=== PATIENT | male | born 1990 | race Caucasian/White ===

== ENCOUNTER 2022-07-09 14:38 | Inpatient (IN) ==
[2022-07-09 17:00] LABS: ABS Basophils 0.1 10^3/ul (0-0.2); ABS Eosinophils 0.3 10^3/ul (0-0.6); ABS Lymphocytes 1.9 10^3/ul (1.0-4.8); ABS Monocytes 0.8 10^3/ul (0-0.8); ABS Neutrophils 11.7 10^3/ul (1.5-7.7); Eosinophil % 1.7 %; Hematocrit 28 % (42-52); Hemoglobin 9.4 g/dL (14.0-18.0); Lymphocyte % 13.1 %; Mean Corpuscular HGB Conc 34 g/dL (31-36); Mean Corpuscular Hemoglobin 32 pg (27-31); Mean Corpuscular Volume 96 fL (80-94); Mean Platelet Volume 7.6 fL (7.4-10.4); Platelet Count 175 10^3/uL (150-450); Red Blood Count 2.93 10^6 /uL (4.18-5.48); Red Cell Distribution Width 15 % (10-15); White Blood Count 14.8 10^3/uL (3.5-10.8)
[2022-07-09 17:20] LABS: Albumin 3.6 g/dL (3.2-5.2); Calcium 7.6 mg/dL (8.6-10.3); Total Protein 5.7 g/dL (6.4-8.9); eGFR CKD-EPI 2.7 (>60)
[2022-07-09 17:21] LABS: Albumin/Globulin Ratio 1.7 (1-3); Globulin 2.1 g/dL (2-4); Potassium 5.3 mmol/L (3.5-5.0); Total Bilirubin 0.4 mg/dL (0.2-1.0)
[2022-07-09] MEDS ORDERED: Vancomycin 1,000 MG in NS 0.9% 250 ml 250 ML IVPB ONE (17:46)
[2022-07-09] MEDS ORDERED: Nitro 2% OINT (Nitroglycerin) 1 INCH/PAK TOPICAL ONE (20:00)
[2022-07-09] MEDS ORDERED: Heparin *DIALYSIS* ONLY 1,000 UNITS/ML VIAL DIALYSIS ONE (20:05)
[2022-07-09 21:19] LABS: C Reactive Protein 31.67 mg/L (<8.01)
[2022-07-09] MEDS: HYDROmorphone 0.5 MG/0.5 ML SYRINGE IV SLOW PU PRN (22:15)
[2022-07-09 22:29] LABS: Magnesium 2.5 mg/dL (1.9-2.7)
[2022-07-09 23:41] LABS: Hepatitis B Surface Antigen Nonreactive (Nonreactive)
[2022-07-09 23:46] LABS: Hepatitis A Ab IgM Negative (Negative)
[2022-07-09 23:47] LABS: Hepatitis B Core IgM Nonreactive (Nonreactive)
[2022-07-09 23:58] LABS: Hepatitis B Surface Ab Immune (Immune); Hepatitis C Antibody Negative (Negative)
[2022-07-10] MEDS ORDERED: Famotidine IV 10 MG/ML 2 ml VIAL (20 mg) IV ONE (00:30)
[2022-07-10] MEDS ORDERED: Pantoprazole VIAL 40 MG VIAL IV SCH (01:00)
[2022-07-10] MEDS ORDERED: Ondansetron 4 mg VIAL 2 MG/ML 2 ml VIAL ONE (01:47)
[2022-07-10] MEDS: Ondansetron 4 mg VIAL 2 MG/ML 2 ml VIAL IV PRN ×2 (01:48→09:44)
[2022-07-10] MEDS ORDERED: Labetalol IV 5 MG/ML 20 ml VIAL IV PUSH ONE (02:08)
[2022-07-10] MEDS: HYDROmorphone 0.5 MG/0.5 ML SYRINGE IV SLOW PU PRN ×2 (02:15→11:42)
[2022-07-10] MEDS ORDERED: Cefepime 1 GM in Dextrose 1 GM/50 ML BAG IV SCH (03:00)
[2022-07-10] MEDS ORDERED: Cefepime 1 GM in Dextrose 1 GM/50 ML BAG IV ONE (03:00)
[2022-07-10] MEDS ORDERED: Prochlorperazine 5 mg/ml 2 ml VIAL (10 mg) ONE (03:44)
[2022-07-10] MEDS: Prochlorperazine 5 mg/ml 2 ml VIAL (10 mg) IV PRN ×2 (03:44→09:48)
[2022-07-10 04:26] LABS: ABS Basophils 0.1 10^3/ul (0-0.2); ABS Eosinophils 0.3 10^3/ul (0-0.6); ABS Lymphocytes 1.6 10^3/ul (1.0-4.8); ABS Monocytes 0.8 10^3/ul (0-0.8); ABS Neutrophils 14.7 10^3/ul (1.5-7.7); Eosinophil % 1.6 %; Hematocrit 28 % (42-52); Hemoglobin 9.1 g/dL (14.0-18.0); Lymphocyte % 9.4 %; Mean Corpuscular HGB Conc 32 g/dL (31-36); Mean Corpuscular Hemoglobin 31 pg (27-31); Mean Corpuscular Volume 94 fL (80-94); Mean Platelet Volume 7.3 fL (7.4-10.4); Platelet Count 174 10^3/uL (150-450); Red Blood Count 2.99 10^6 /uL (4.18-5.48); Red Cell Distribution Width 15 % (10-15); White Blood Count 17.5 10^3/uL (3.5-10.8)
[2022-07-10 04:57] LABS: Calcium 7.5 mg/dL (8.6-10.3); eGFR CKD-EPI 2.7 (>60)
[2022-07-10 05:02] LABS: Potassium 5.2 mmol/L (3.5-5.0)
[2022-07-10] MEDS: Heparin 1,000 UNIT/ML 10 ml (10,000 UNITS) CATHLAB/DIALYSIS DIALYSIS SCH ×4 (07:08→10:08)
[2022-07-10] MEDS ORDERED: Heparin 1,000 UNIT/ML 10 ml (10,000 UNITS) CATHLAB/DIALYSIS DIALYSIS PRN (10:39)
[2022-07-10] MEDS: Famotidine IV 10 MG/ML 2 ml VIAL (20 mg) IV SLOW PU SCH (11:39)
[2022-07-10] MEDS: Cefepime 1 GM in Dextrose 1 GM/50 ML BAG IV SCH (11:39)
[2022-07-10 11:46] LABS: INR 1.04 (0.89-1.11)
[2022-07-10] MEDS ORDERED: Lidocaine 1% MPF 5 ML VIAL ONE ×2 (11:59→12:39)
[2022-07-10] MEDS ORDERED: fentaNYL 100 mcg/2 ml 50 MCG/ML VIAL ONE (11:59)
[2022-07-10] MEDS ORDERED: Midazolam 5 mg/5 ml VIAL 1 mg/ml 5 ml VIAL (5 mg) ONE (11:59)
[2022-07-10] MEDS ORDERED: Heparin 2 UNITS/ML 1000 mls 0 ML IV ONE (12:03)
[2022-07-10 14:56] LABS: Body Fluid WBC 434 /mcL
[2022-07-10 15:26] LABS: Body Fluid Mono 47 %; Body Fluid Total Cells Counted 200
[2022-07-10 15:27] LABS: Body Fluid Appearance Bloody; Body Fluid Color Red; Body Fluid Source Pericardial Fluid
[2022-07-11 05:48] LABS: ABS Basophils 0.1 10^3/ul (0-0.2); ABS Eosinophils 0.1 10^3/ul (0-0.6); ABS Lymphocytes 1.8 10^3/ul (1.0-4.8); ABS Monocytes 0.9 10^3/ul (0-0.8); ABS Neutrophils 10.3 10^3/ul (1.5-7.7); Eosinophil % 0.8 %; Hematocrit 26 % (42-52); Hemoglobin 8.6 g/dL (14.0-18.0); Mean Corpuscular HGB Conc 33 g/dL (31-36); Mean Corpuscular Hemoglobin 31 pg (27-31); Mean Corpuscular Volume 94 fL (80-94); Platelet Count 178 10^3/uL (150-450); Red Cell Distribution Width 15 % (10-15); White Blood Count 13.2 10^3/uL (3.5-10.8)
[2022-07-11 06:23] LABS: C Reactive Protein 41.02 mg/L (<8.01); Calcium 8.1 mg/dL (8.6-10.3); Phosphorus 10.9 mg/dL (2.5-5.0); Potassium 4.2 mmol/L (3.5-5.0); eGFR CKD-EPI 4.3 (>60)
[2022-07-11] MEDS: Heparin 1,000 UNIT/ML 10 ml (10,000 UNITS) CATHLAB/DIALYSIS DIALYSIS PRN ×5 (08:00→11:20)
[2022-07-11] MEDS: Famotidine IV 10 MG/ML 2 ml VIAL (20 mg) IV SLOW PU SCH (09:12)
[2022-07-11 10:41] LABS: Lactate Dehydrogenase, BF 236 U/L
[2022-07-11] MEDS: Cefepime 1 GM in Dextrose 1 GM/50 ML BAG IV SCH (11:49)
[2022-07-11 12:09] LABS: Magnesium 2.2 mg/dL (1.9-2.7)
[2022-07-11 12:41] LABS: Glucose, BF 111 mg/dL
[2022-07-11 12:42] LABS: Fluid Type, Protein, Total PERICARDIAL FLUID; Total Protein, BF 3.8 g/dL
[2022-07-11 14:50] LABS: Body Fluid Appearance Bloody; Body Fluid Color Red; Body Fluid Source Peritonial Fluid
[2022-07-11 15:16] LABS: Body Fluid WBC 591 /mcL
[2022-07-11 16:28] LABS: Body Fluid Band 1 %; Body Fluid Mono 44 %; Body Fluid Total Cells Counted 200
[2022-07-12 04:45] LABS: ABS Basophils 0.1 10^3/ul (0-0.2); ABS Eosinophils 0.2 10^3/ul (0-0.6); ABS Lymphocytes 2.4 10^3/ul (1.0-4.8); ABS Monocytes 1.1 10^3/ul (0-0.8); ABS Neutrophils 7.5 10^3/ul (1.5-7.7); Eosinophil % 2.2 %; Hematocrit 25 % (42-52); Hemoglobin 8.3 g/dL (14.0-18.0); Lymphocyte % 20.7 %; Mean Corpuscular HGB Conc 33 g/dL (31-36); Mean Corpuscular Hemoglobin 31 pg (27-31); Mean Corpuscular Volume 93 fL (80-94); Platelet Count 169 10^3/uL (150-450); Red Cell Distribution Width 15 % (10-15); White Blood Count 11.4 10^3/uL (3.5-10.8)
[2022-07-12 05:19] LABS: Calcium 7.2 mg/dL (8.6-10.3); Potassium 4.3 mmol/L (3.5-5.0); eGFR CKD-EPI 6.6 (>60)
[2022-07-12] MEDS: Famotidine IV 10 MG/ML 2 ml VIAL (20 mg) IV SLOW PU SCH (08:59)
[2022-07-12] MEDS: Cefepime 1 GM in Dextrose 1 GM/50 ML BAG IV SCH (09:00)
[2022-07-12] MEDS: Heparin 1,000 UNIT/ML 10 ml (10,000 UNITS) CATHLAB/DIALYSIS DIALYSIS PRN ×4 (10:25→13:40)
[2022-07-12] MEDS ORDERED: Nicotine GUM 4MG FRUIT FLAVOR PO ONE (19:42)
[2022-07-12] MEDS ORDERED: Nicotine GUM 2MG FRUIT FLAVOR PO ONE (19:42)
[2022-07-12] MEDS: Nicotine GUM 4MG FRUIT FLAVOR PO PRN ×2 (19:44→21:35)
[2022-07-13] MEDS: Nicotine GUM 4MG FRUIT FLAVOR PO PRN ×2 (03:40→10:22)
[2022-07-13 04:52] LABS: ABS Basophils 0.1 10^3/ul (0-0.2); ABS Eosinophils 0.5 10^3/ul (0-0.6); ABS Lymphocytes 2.8 10^3/ul (1.0-4.8); ABS Monocytes 1.2 10^3/ul (0-0.8); ABS Neutrophils 7.6 10^3/ul (1.5-7.7); Eosinophil % 4.1 %; Hematocrit 25 % (42-52); Hemoglobin 8.6 g/dL (14.0-18.0); Lymphocyte % 22.8 %; Mean Corpuscular HGB Conc 34 g/dL (31-36); Mean Corpuscular Hemoglobin 32 pg (27-31); Mean Corpuscular Volume 94 fL (80-94); Mean Platelet Volume 7.2 fL (7.4-10.4); Platelet Count 197 10^3/uL (150-450); Red Cell Distribution Width 15 % (10-15); White Blood Count 12.2 10^3/uL (3.5-10.8)
[2022-07-13 05:30] LABS: C Reactive Protein 27.32 mg/L (<8.01); Calcium 7.4 mg/dL (8.6-10.3); Magnesium 2.1 mg/dL (1.9-2.7); Phosphorus 7.9 mg/dL (2.5-5.0); Potassium 3.9 mmol/L (3.5-5.0); eGFR CKD-EPI 8.4 (>60)
[2022-07-13] MEDS: Metoprolol Tartrate 5 mg VIAL 5 ml VIAL (1 mg/ml) IV ONE ×2 (07:17→07:40)
[2022-07-13] MEDS: Heparin 1,000 UNIT/ML 10 ml (10,000 UNITS) CATHLAB/DIALYSIS DIALYSIS PRN ×4 (08:50→12:55)
[2022-07-13] MEDS: Cefepime 1 GM in Dextrose 1 GM/50 ML BAG IV SCH (12:29)
[2022-07-13] MEDS: Famotidine IV 10 MG/ML 2 ml VIAL (20 mg) IV SLOW PU SCH (12:29)
[2022-07-13 14:10] LABS: Rapid COVID-19 Molecular Undetected (Undetected)
[2022-07-13 15:15] VITALS: BP 124/103
== END 2022-07-13 15:10 | disposition short-term general hospital (02) | DRG 207 ==
LOC: ED 14:38 → EDHOLD 22:05 → ICU 23:09
PROVIDERS: ADMIT Hospitalist; ATTEND Hospitalist